=== PATIENT | female | born 1985 | race American Indian/Alaskan Native ===

== ENCOUNTER 2019-05-23 21:36 | Inpatient (IN) | payer MEDICARE, OTHER ==
--- NOTE | 2019-05-23 22:38 | Event Note ---
ED Screening Note Date of service: 05/23/19 Time: 22:37 ED Screening Note: 33 y o f presents with chest pain, sob and mohan x 2 days prod cough This initial assessment/diagnostic orders/clinical plan/treatment(s) is/are subject to change based on patients health status, clinical progression and re- assessment by fellow clinical providers in the ED. Further treatment and workup at subsequent clinical providers discretion. Patient/guardian urged not to elope from the ED as their condition may be serious if not clinically assessed and managed. Initial orders include: cxr
--- NOTE | 2019-05-23 23:27 | XRay Report ---
CHEST 2 VIEWS INDICATION / CLINICAL INFORMATION: prod cough and pain. COMPARISON: Chest x-ray 05/08/2010 FINDINGS: SUPPORT DEVICES: None. HEART / MEDIASTINUM: No significant abnormality. LUNGS / PLEURA: Peribronchial or thickening has developed since prior study suggestive for bronchitis /asthma. No focal infiltrate is seen to suggest pneumonia No pneumothorax. ADDITIONAL FINDINGS: No significant additional findings. IMPRESSION: 1. Peribronchial or thickening suggestive for mild bronchitis. Signer Name: Praful Carreon MD Signed: 05/23/2019 11:23 PM Workstation Name: [id number]
[2019-05-23 23:30] LABS: Basophils % (Auto) 0.3 % (0.0-1.8); Eosinophils # (Auto) 0.2 K/mm3 (0.0-0.4); Eosinophils % (Auto) 1.4 % (0.0-4.3); Hematocrit 35.7 % (30.3-42.9); Hemoglobin 11.6 gm/dl (10.1-14.3); Lymphocytes # (Auto) 1.3 K/mm3 (1.2-5.4); Lymphocytes % (Auto) 9.5 % (13.4-35.0); Mean Corpuscular HGB Conc 32 % (30-34); Mean Corpuscular Volume 78 fl (79-97); Monocytes # (Auto) 0.5 K/mm3 (0.0-0.8); Monocytes % (Auto) 4.2 % (0.0-7.3); Platelet Count 219 K/mm3 (140-440); Red Blood Count 4.57 M/mm3 (3.65-5.03); Red Cell Distribution Width 19.2 % (13.2-15.2)
[2019-05-23 23:52] LABS: BUN/Creatinine Ratio 8; Blood Urea Nitrogen 6 mg/dL (7-17); Calcium 8.8 mg/dL (8.4-10.2); Hemolysis Index 7
[2019-05-24] MEDS ORDERED: PROVENTIL IH ONE ×2 (00:10→11:48)
[2019-05-24] MEDS ORDERED: SUBLIMAZE IM ONE (00:10)
[2019-05-24] MEDS ORDERED: ATROVENT IH ONE (00:10)
[2019-05-24] MEDS ORDERED: ZOFRAN IM ONE (00:10)
[2019-05-24] MEDS ORDERED: ZITHROMAX 500 MG in NACL 0.9% 250ML 250 ML IV ONE (00:21)
[2019-05-24] MEDS ORDERED: ROCEPHIN/NS 1 GM/50 ML 1 GM/50 ML BAG IV ONE (00:21)
[2019-05-24] MEDS ORDERED: SUBLIMAZE IV ONE (00:21)
--- NOTE | 2019-05-24 00:21 | Emergency Department Report ---
HPI - General Chief Complaint: Chest Pain Time Seen by Provider: 05/23/19 22:37 - HPI HPI: Room 3 The patient is a 33-year-old female presenting with a chief complaint of chest pain and shortness of breath. The patient states since yesterday she has had left-sided chest pain intermittently associated with shortness of breath and cough productive of yellow sputum. Patient with nausea but denies vomiting or diaphoresis. Patient denies sick contacts or recent travel outside of the [place]. The patient gives her pain a score of 9/10 Location: [See above] Duration: [See above] Quality: [See above] Severity: [See above] Timing: [See above] Context: [See above] Modifying factors: [See above] Associated signs and symptoms: [see above] ED Past Medical Hx - Past Medical History Previous Medical History?: Yes Additional medical history: Morbid Obesity - Surgical History Past Surgical History?: No - Family History Family history: no significant - Social History Smoking Status: Current Every Day Smoker (2/3 pack per day) Substance Use Type: None ED Review of Systems ROS: Stated complaint: CHEST PAIN/MIGRAINE Other details as noted in HPI Constitutional: fever (?) Eyes: denies: eye pain Respiratory: cough, shortness of breath Cardiovascular: chest pain Endocrine: no symptoms reported Gastrointestinal: nausea. denies: vomiting Genitourinary: denies: dysuria Musculoskeletal: denies: back pain Neurological: headache Physical Exam - Physical Exam Vital Signs: Vital Signs 05/23/19 22:37 Temperature 98.6 F Pulse Rate 118 H Respiratory 20 Rate Blood Pressure 201/95 O2 Sat by Pulse 95 Oximetry Physical Exam: GENERAL: The patient is well-developed well-nourished female lying on stretcher not appearing to be in acute distress. [] HEENT: Normocephalic. Atraumatic. Extraocular motions are intact. Patient has moist mucous membranes. NECK: Supple. No meningitic signs are noted. There is no adenopathy noted. CHEST/LUNGS: Faint wheezing diffusely. There is no respiratory distress noted. HEART/CARDIOVASCULAR: Regular. There is tachycardia. There is no gallop rub or murmur. ABDOMEN: Abdomen is soft, nontender. Patient has normal bowel sounds. There is no abdominal distention. SKIN: There is no rash. There is no diaphoresis. NEURO: The patient is awake, alert, and oriented. The patient is cooperative. The patient has normal speech MUSCULOSKELETAL:There is no evidence of acute injury. ED Course Vital Signs 05/23/19 22:37 Temperature 98.6 F Pulse Rate 118 H Respiratory 20 Rate Blood Pressure 201/95 O2 Sat by Pulse 95 Oximetry ED Medical Decision Making - Lab Data Result diagrams: 05/23/19 23:04 05/23/19 23:04 - EKG Data -: EKG Interpreted by Me EKG shows normal: sinus rhythm Rate: tachycardia (118 bpm) - EKG Data Interpretation: nonspecific ST-T wave uziel (T-wave inversions in leads 2, 3, aVF) - Radiology Data Radiology results: report reviewed (chest x-ray), image reviewed (chest x-ray) interpreted by me: Chest [id number] diffuse infiltrate. No pneumothorax [facility] [address] [place] [address] XRay Report Signed Patient: SCOUT BURNETT MR#: [id number] : 1985 Acct:[id number] Age/Sex: 33 / F ADM Date: 05/23/19 Loc: ED Attending Dr: Ordering Physician: BHAVANI GARCIA Date of Service: 05/23/19 Procedure(s): XR chest routine 2V Accession Number(s): [id number] cc: BHAVANI GARCIA Fluoro Time In Minutes: CHEST 2 VIEWS INDICATION / CLINICAL INFORMATION: prod cough and pain. COMPARISON: Chest x-ray 05/08/2010 FINDINGS: SUPPORT DEVICES: None. HEART / MEDIASTINUM: No significant abnormality. LUNGS / PLEURA: Peribronchial or thickening has developed since prior study suggestive for bronchitis/asthma. No focal infiltrate is seen to suggest pneumonia No pneumothorax. ADDITIONAL FINDINGS: No significant additional findings. IMPRESSION: 1. Peribronchial or thickening suggestive for mild bronchitis. Signer Name: Praful Carreon MD Signed: 05/23/2019 11:23 PM Workstation Name: [id number] Transcribed By: TL Dictated By: Praful Carreon MD Electronically Authenticated By: Praful Carreon MD Signed Date/Time: 05/23/192322 DD/ 17 TD/TT: - Differential Diagnosis pneumonia, bronchitis, myocarditis, hypertensive urgency Critical care attestation.: If time is entered above; I have spent that time in minutes in the direct care of this critically ill patient, excluding procedure time. ED Disposition Clinical Impression: Pneumonia, Hypertensive crisis, Tachycardia, Leukocytosis, Chest pain Disposition: OP ADMIT IP TO THIS HOSP Is pt being admited?: Yes Does the pt Need Aspirin: Yes Condition: Fair Instructions: Bacterial Pneumonia (ED), Hypertension (ED), Chest Pain (ED) Time of Disposition: 01:11 (hospitalist paged (Dr Adames))
[2019-05-24] MEDS ORDERED: REGLAN IV ONE (00:22)
[2019-05-24] MEDS ORDERED: CATAPRES PO ONE (00:26)
[2019-05-24] MEDS ORDERED: NACL 0.9% 1000 ML 1,000 ML IV ONE (00:26)
[2019-05-24] MEDS ORDERED: APRESOLINE IV ONE (02:43)
[2019-05-24] MEDS ORDERED: MORPHINE IV ONE ×2 (02:44→22:24)
[2019-05-24] MEDS: HEPARIN SUB-Q SCH ×3 (03:10→22:02)
[2019-05-24] MEDS: TYLENOL PO PRN ×3 (03:11→15:30)
[2019-05-24] MEDS: ZOFRAN IV PRN ×2 (03:18→19:59)
[2019-05-24] MEDS: NACL 0.9% 1000 ML 1,000 ML IV SCH ×2 (04:42→12:05)
[2019-05-24] MEDS: ROBITUSSIN PO PRN ×4 (04:42→19:59)
--- NOTE | 2019-05-24 06:30 | History and Physical Report ---
CHIEF COMPLAINT: Pleuritic chest pain. Other complaints include shortness of breath, fever and cough. HISTORY OF PRESENT ILLNESS: The patient is a 33-year-old female who said she has been having pleuritic chest pain that is intermittent and associated with shortness of breath and cough productive of yellow sputum. There is also history of fever, nausea, but no vomiting. The patient also complained about palpitations, but denied history of dizziness and presented for evaluation. PAST MEDICAL HISTORY: Pertinent for morbid obesity. PAST SURGICAL HISTORY: Unremarkable. FAMILY HISTORY: Noncontributory. SOCIAL HISTORY: The patient smokes cigarette; does not drink alcohol and does not use illicit drug. MEDICATIONS: The patient is not on any medications. ALLERGIES: THE PATIENT IS ALLERGIC TO METRONIDAZOLE. REVIEW OF SYSTEMS: CONSTITUTIONAL: There is fever, there is chills, but no diaphoresis. HEENT: There is no headache or sore throat. CARDIOVASCULAR SYSTEM: There is pleuritic chest pain, but no orthopnea. RESPIRATORY SYSTEM: There is shortness of breath and cough. GASTROINTESTINAL SYSTEM: There is nausea, but no vomiting, no abdominal pain, diarrhea or constipation. NEUROLOGICAL SYSTEM: There is no numbness, no dizziness, no altered mental status. MUSCULOSKELETAL SYSTEM: There is no joint pain or swelling. DERMATOLOGICAL SYSTEM: There is no skin rash or itching. GENITOURINARY SYSTEM: There is no dysuria, hematuria, or flank pain. Rest of system review is normal. PHYSICAL EXAMINATION: GENERAL: At the time of exam, the patient was found to be alert, oriented x 3 and not in acute distress. VITAL SIGNS: At the initial time of presentation showed temperature of 98.6 degrees Fahrenheit, pulse of 118, respiratory rate of 20, initial blood pressure of 201/95 and subsequently the blood pressure came down to about 143/69. HEENT: Showed pupils to be equal, round, reactive to light and accommodating. Extraocular muscles are intact. NECK: Supple with no JVD or carotid bruit. CARDIOVASCULAR SYSTEM: Showed normal first and second heart sounds with no gallops or murmurs. RESPIRATORY SYSTEM: Show good air entry on both sides of the lungs with no abnormal breath sounds. GASTROINTESTINAL SYSTEM: Show abdomen to be full, soft, nontender with no organomegaly or rigidity. NEUROLOGIC: Shows no focal deficit. MUSCULOSKELETAL SYSTEM: Show no joint swelling or tenderness. DERMATOLOGICAL SYSTEM: Show no skin rash. GENITOURINARY SYSTEM: Showing no costovertebral angle tenderness. PERTINENT LABORATORY AND IMAGING STUDIES: The patient had chest x-ray done that shows peribronchial thickening suggestive of mild bronchitis and the patient's lab results shows CBC with elevated white count of 13,100, normal hemoglobin, normal hematocrit and CBC differential showing elevated segmented neutrophil count of 84.6%. The patient's chemistry show mild decrease in sodium level of 136 with rest of chemistry being unremarkable. The patient's troponin level came back normal for 2 sets and lactic acid level was unremarkable. The patient's brain natriuretic peptide level was normal. DIAGNOSES: 1. Bronchitis. 2. Hypertensive crisis. 3. Obesity. PLAN OF CARE: 1. The patient will be admitted to medical floor on remote telemetry. 2. The patient will be on IV ceftriaxone 1 gram daily for empiric treatment of bronchitis and Zithromax 500 mg IV daily also for empiric treatment of bronchitis. 3. The patient will be on Tylenol 650 mg by mouth every 4 hours for fever and headache and will be on Robitussin 200 mg by mouth every 4 hours for cough. 4. The patient will be on IV hydralazine 10 mg every 4 hours for elevated blood pressure of 150/90 or more. 5. The patient will be on IV normal saline at 125 mL an hour and will be on IV Zofran 4 mg every 8 hours as needed for nausea and vomiting. JOB# [id number] OCN/NTS
[2019-05-24] MEDS: HABITROL TD SCH ×2 (08:40→12:10)
--- NOTE | 2019-05-24 11:52 | Event Note ---
Date: 05/24/19 Patient seen and examined admitted for SOB, bronchitis, SIRS, cont current Mx and plan as dictated in h and p
[2019-05-24 12:39] LABS: Creatine Kinase MB 4.1 ng/mL (0.0-4.0)
[2019-05-24] MEDS: DUONEB *Not for PRN Use IH SCH ×2 (14:22→19:41)
[2019-05-24] MEDS: APRESOLINE IV PRN ×2 (15:32→19:58)
[2019-05-24] MEDS: ULTRAM PO PRN (21:59)
[2019-05-24] MEDS: ROCEPHIN/NS 1 GM/50 ML 1 GM/50 ML BAG IV SCH (21:59)
[2019-05-24] MEDS: NORVASC PO SCH (22:00)
[2019-05-24] MEDS ORDERED: ZOFRAN IV PRN (22:24)
[2019-05-24] MEDS: ZITHROMAX 500 MG in NACL 0.9% 250ML 250 ML IV SCH (22:26)
[2019-05-25] MEDS ORDERED: MORPHINE IV ONE (00:35)
[2019-05-25] MEDS: DUONEB *Not for PRN Use IH SCH ×4 (02:00→20:53)
[2019-05-25] MEDS: NACL 0.9% 1000 ML 1,000 ML IV SCH (04:07)
[2019-05-25] MEDS ORDERED: APRESOLINE IV PRN (08:38)
[2019-05-25] MEDS: HABITROL TD SCH (10:39)
[2019-05-25] MEDS: NORVASC PO SCH ×2 (10:39→22:21)
[2019-05-25] MEDS: ULTRAM PO PRN ×2 (10:40→18:19)
[2019-05-25] MEDS: MUCINEX ER PO SCH ×2 (10:40→22:20)
[2019-05-25] MEDS: HEPARIN SUB-Q SCH ×2 (10:41→22:22)
--- NOTE | 2019-05-25 15:17 | Progress Note ---
Assessment and Plan Acute hypoxic respiratory failure - O2 sats dropped to 83% on exertion with 2 L nasal cannula Acute asthma exacerbation SIRS with acute asthma and bronchitis Hypertensive Urgency Morbid obesity - Will provide scheduled nebulizer breathing treatment and as needed -Continue on on empiric steroid and antibiotic - chest x-ray showed peribronchial thickening consistent with acute bronchitis - Provide supplemental oxygen to keep oxygen saturation above 92% - Consult pulmonary as no improvement of symptoms yet - We to provide supportive care - Monitor BP, continue on Norvasc and add lisinopril - May need outpatient eval for nocturnal CPAP - Dietary and exercise recommendation on discharge as clinically indicated - Provide DVT prophylaxis with Lovenox. Physical exam: GENERAL: well-developed morbidly obese -English female lying on bed appeared to be in no discomfort. HEENT: Normocephalic. Atraumatic. No conjunctival congestion or icterus. Patient has moist mucous membranes. NECK: Supple. Trachea midline. CHEST/LUNGS: Diffuse wheezes auscultated bilaterally, breathing slightly labored. No crackles or rhonchi. HEART/CARDIOVASCULAR: Regular in rate and rhythm. S1 and S2 positive. ABDOMEN: Abdomen is soft, nontender. Patient has normal bowel sounds. SKIN: There is no rash. Warm and dry. NEURO: No focal motor deficit. Follows command. MUSCULOSKELETAL: No joint effusion or tenderness. EXTRIMITY: No edema, no cyanosis or clubbing. PSYCH: Cooperative. Subjective Date of service: 05/25/19 Interval history: Patient seen and examined. Medical records and medication list reviewed. No acute event overnight noted by the RN. Patient continues to complains of shortness of breath and headache. Also has persistent cough. Patient is tolerating diet. Discussed plan of care at bedside with patient. Objective - Constitutional Vitals: Vital Signs - 12hr 05/25/19 05/25/19 05/25/19 06:45 08:57 10:39 Temperature 99.1 F Pulse Rate 98 H 98 H Pulse Rate [ 110 H Bilateral] Respiratory 20 Rate Respiratory 24 Rate [Bilateral ] Blood Pressure 182/95 182/95 O2 Sat by Pulse 92 97 Oximetry 05/25/19 05/25/19 05/25/19 10:40 13:00 13:26 Temperature 98.3 F Pulse Rate 101 H Pulse Rate [ 107 H Bilateral] Respiratory 20 22 Rate Respiratory 20 Rate [Bilateral ] Blood Pressure 173/94 O2 Sat by Pulse 91 Oximetry - Labs CBC & Chem 7: 05/23/19 23:04 05/26/19 04:47
[2019-05-25] MEDS: SOLU-Medrol IV SCH ×2 (18:19→22:20)
[2019-05-25] MEDS: ZESTRIL PO SCH (18:21)
[2019-05-25] MEDS: ZITHROMAX 500 MG in NACL 0.9% 250ML 250 ML IV SCH (22:24)
[2019-05-25] MEDS: ROCEPHIN/NS 1 GM/50 ML 1 GM/50 ML BAG IV SCH (22:25)
[2019-05-26] MEDS: APRESOLINE IV PRN ×2 (02:04→05:22)
[2019-05-26] MEDS: DUONEB *Not for PRN Use IH SCH ×4 (03:59→20:03)
[2019-05-26] MEDS: SOLU-Medrol IV SCH ×3 (05:21→21:47)
[2019-05-26 05:40] LABS: BUN/Creatinine Ratio 9; Blood Urea Nitrogen 6 mg/dL (7-17); Calcium 9.1 mg/dL (8.4-10.2); Hemolysis Index 0
[2019-05-26] MEDS: HABITROL TD SCH (10:50)
[2019-05-26] MEDS: MUCINEX ER PO SCH ×2 (10:50→21:48)
[2019-05-26] MEDS: HEPARIN SUB-Q SCH ×2 (10:51→21:48)
[2019-05-26] MEDS: ZESTRIL PO SCH ×2 (11:02→21:47)
[2019-05-26] MEDS: NORVASC PO SCH (11:02)
[2019-05-26] MEDS: ULTRAM PO PRN ×2 (11:37→16:06)
--- NOTE | 2019-05-26 15:20 | Consultation ---
History of Present Illness Consult date: 05/26/19 Reason for consult: dyspnea, cough, chest pain, other (Migrane headaches.) History of present illness: PULMONARY AND CRITICAL CARE CONSULTATION. DR. MCCORMICK THANK YOU FOR ASKING US TO PARTICIPATE IN THE CARE OF THIS PATIENT. The patient is a 33-year-old female presenting with a chief complaint of chest pain and shortness of breath. The patient states since yesterday she has had left-sided chest pain intermittently associated with shortness of breath and c ough productive of yellow sputum. Patient with nausea but denies vomiting or diaphoresis. Patient denies sick contacts or recent travel outside of the [place]. Patient has history of smoking 1 pack for 1 1/2 day x 14 years. Denies alcohol or drug abuse. She drives [employer] 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 Allergic to flagy. Patient complaining sleep symptoms. Day time sleepiness, snorining. Recommend sl eep study as out patient. Recommend not to drive or operate heavy euipment with symptoms of sleep apnea. Avoid sedation and pain medications. Medications and Allergies Allergies Allergy/AdvReac Type Severity Reaction Status Date / Time metronidazole [From Flagyl] Allergy Hives Verified 05/23/19 21:51 Home Medications Medication Instructions Recorded Confirmed Last Taken Type No Known Home Medications [No 05/24/19 05/24/19 Unknown History Reported Home Medications] Active Meds: Active Medications Acetaminophen (Tylenol) 650 mg PO Q4H PRN PRN Reason: Fever >101 Last Admin: 05/24/19 15:30 Dose: 650 mg Documented by: Albuterol/Ipratropium (Duoneb *Not For Prn Use*) 1 ampul IH Q6HRT [facility] Last Admin: 05/26/19 15:07 Dose: 1 ampul Documented by: Amlodipine Besylate (Norvasc) 10 mg PO QDAY [facility] Last Admin: 05/26/19 11:02 Dose: 10 mg Documented by: Guaifenesin (Robitussin) 200 mg PO Q4H PRN PRN Reason: Cough Last Admin: 05/24/19 19:59 Dose: 200 mg Documented by: Guaifenesin (Mucinex Er) 600 mg PO BID [facility] Last Admin: 05/26/19 10:50 Dose: 600 mg Documented by: Heparin Sodium (Porcine) (Heparin) 5,000 unit SUB-Q Q12HR [facility] Last Admin: 05/26/19 10:51 Dose: 5,000 unit Documented by: Hydralazine HCl (Apresoline) 10 mg IV Q4H PRN PRN Reason: Blood Pressure Last Admin: 05/26/19 05:22 Dose: 10 mg Documented by: Hydralazine HCl (Apresoline) 5 mg IV Q30MIN PRN PRN Reason: Hypertension Azithromycin 500 mg/ Sodium (Chloride) 250 mls @ 250 mls/hr IV Q24HR@2200 [facility]; Protocol Stop: 05/28/19 22:59 Last Admin: 05/25/19 22:24 Dose: 250 mls/hr Documented by: Ceftriaxone Sodium (Rocephin/Ns 1 Gm/50 Ml) 1 gm in 50 mls @ 100 mls/hr IV Q 24HR@2200 [facility]; Protocol Last Admin: 05/25/19 22:25 Dose: 100 mls/hr Documented by: Lisinopril (Zestril) 20 mg PO QDAY [facility] Last Admin: 05/26/19 11:02 Dose: 20 mg Documented by: Methylprednisolone Sodium Succinate (Solu-Medrol) 40 mg IV Q8HR [facility] Last Admin: 05/26/19 05:21 Dose: 40 mg Documented by: Nicotine (Habitrol) 21 mg TD DAILY [facility] Last Admin: 05/26/19 10:50 Dose: 21 mg Documented by: Ondansetron HCl (Zofran) 4 mg IV Q6H PRN PRN Reason: Nausea And Vomiting Tramadol HCl (Ultram) 50 mg PO Q4H PRN PRN Reason: Pain, Moderate (4-6) Last Admin: 05/26/19 11:37 Dose: 50 mg Documented by: Review of Systems All systems: negative Physical Examination Vital signs: Vital Signs Temp Pulse Resp BP Pulse Ox 98.6 F 118 H 20 201/95 95 05/23/19 22:37 05/23/19 22:37 05/23/19 22:37 05/23/19 22:37 05/23/19 22:37 General appearance: no acute distress, alert Eyes: non-icteric ENT: oropharynx moist Neck: supple, no lymphadenopathy Ascultation: Bilateral: diminished breath sounds Cardiovascular: regular rate and rhythm Gastrointestinal: normoactive bowel sounds, soft Integumentary: normal Extremities: no cyanosis, no edema Musculoskeletal: ROM normal Gait: other (rESTING IN BED AT THIS TIME.) normal mental status, non-focal exam, pupils equal and round, CN II-XII normal mood appropriate Results - Laboratory Findings CBC and BMP: 05/23/19 23:04 05/26/19 04:47 Abnormal lab findings: Abnormal Labs 05/23/19 05/23/19 05/24/19 23:04 23:04 10:42 WBC 13.1 H MCV 78 L MCH 25 L RDW 19.2 H Lymph % (Auto) 9.5 L Seg Neutrophils % 84.6 H Seg Neutrophils # 11.1 H Sodium 136 L BUN 6 L Glucose Total Creatine Kinase 235 H CK-MB (CK-2) 4.1 H 05/26/19 04:47 WBC MCV MCH RDW Lymph % (Auto) Seg Neutrophils % Seg Neutrophils # Sodium 134 L BUN 6 L Glucose 116 H Total Creatine Kinase CK-MB (CK-2) - Diagnostic Findings Chest x-ray: report reviewed, image reviewed Additional studies: CHEST 2 VIEWS DONE ON 05/23/19 INDICATION / CLINICAL INFORMATION: prod cough and pain. COMPARISON: Chest x-ray 05/08/2010 FINDINGS: SUPPORT DEVICES: None. HEART / MEDIASTINUM: No significant abnormality. LUNGS / PLEURA: Peribronchial or thickening has developed since prior study suggestive for bronchitis/asthma. No focal infiltrate is seen to suggest pneumonia No pneumothorax. ADDITIONAL FINDINGS: No significant additional findings. IMPRESSION: 1. Peribronchial or thickening suggestive for mild bronchitis. Assessment and Plan - Patient Problems (1) Chest pain Current Visit: Yes Status: Acute Plan to address problem: Management as per primary care and cardiology. (2) Acute bronchitis Current Visit: Yes Status: Acute Plan to address problem: Continue Zithromax and Ceftriaxone. (3) Morbid obesity with BMI of 70 and over, adult Current Visit: Yes Status: Acute Plan to address problem: Recommend weight loss. Recommend exercise and diet. (4) Sleep apnea in adult Current Visit: Yes Status: Acute Plan to address problem: Recommend sleep study as an outpatient. Obtain ABG to rule out hypoxemia and Obesity Hypoventilation Syndrome.
--- NOTE | 2019-05-26 15:32 | Progress Note ---
Assessment and Plan Acute hypoxic respiratory failure - O2 sats dropped to 83% on exertion with 2 L nasal cannula Acute asthma exacerbation SIRS with acute asthma and bronchitis Hypertensive Urgency Morbid obesity Chest pain, likely pleuretic - may need cardiology eval - Will provide scheduled nebulizer breathing treatment and as needed -Continue on on empiric steroid and antibiotic - chest x-ray showed peribronchial thickening consistent with acute bronchitis - Provide supplemental oxygen to keep oxygen saturation above 92% - Consulted pulmonary as no improvement of symptoms - appreciate consult - We to provide supportive care - Monitor BP, continue on Norvasc and lisinopril - cont to adjust doses - place on aspirin and statin - May need outpatient eval for nocturnal CPAP - Dietary and exercise recommendation on discharge as clinically indicated - Provide DVT prophylaxis with Lovenox. Physical exam: GENERAL: well-developed morbidly obese -Polish female lying on bed appeared to be in no discomfort. HEENT: Normocephalic. Atraumatic. No conjunctival congestion or icterus. Patient has moist mucous membranes. NECK: Supple. Trachea midline. CHEST/LUNGS: Diffuse wheezes auscultated bilaterally, breathing slightly labored. No crackles or rhonchi. HEART/CARDIOVASCULAR: Regular in rate and rhythm. S1 and S2 positive. ABDOMEN: Abdomen is soft, nontender. Patient has normal bowel sounds. SKIN: There is no rash. Warm and dry. NEURO: No focal motor deficit. Follows command. MUSCULOSKELETAL: No joint effusion or tenderness. EXTRIMITY: No edema, no cyanosis or clubbing. PSYCH: Cooperative. Subjective Date of service: 05/26/19 Interval history: Patient seen and examined. Medical records and medication list reviewed. No acute event overnight noted by the RN. Patient continues to complains of shortness of breath and headache. Also has persistent cough. Patient is tolerating diet. gets SOB even on bed Discussed plan of care at bedside with patient. Objective - Constitutional Vitals: Vital Signs - 12hr 05/26/19 05/26/19 05/26/19 05:22 05:40 10:00 Temperature 98.3 F Pulse Rate 92 H 92 H Pulse Rate [ Bilateral] Respiratory 20 Rate Respiratory Rate [Bilateral ] Blood Pressure 160/90 Blood Pressure 160/90 [Left] O2 Sat by Pulse 98 97 Oximetry 05/26/19 05/26/19 05/26/19 10:40 10:56 11:02 Temperature 98.5 F Pulse Rate 104 H 107 H Pulse Rate [ 95 H Bilateral] Respiratory 20 Rate Respiratory 18 Rate [Bilateral ] Blood Pressure 184/94 184/94 Blood Pressure [Left] O2 Sat by Pulse 98 Oximetry 05/26/19 05/26/19 11:48 15:08 Temperature 99.3 F Pulse Rate 101 H Pulse Rate [ 85 Bilateral] Respiratory 24 Rate Respiratory 18 Rate [Bilateral ] Blood Pressure 159/79 Blood Pressure [Left] O2 Sat by Pulse 94 Oximetry - Labs CBC & Chem 7: 05/23/19 23:04 05/26/19 04:47 Labs: Abnormal lab results 05/26/19 Range/Units 04:47 Sodium 134 L (137-145) mmol/L BUN 6 L (7-17) mg/dL Glucose 116 H (65-100) mg/dL
[2019-05-26] MEDS: PULMICORT IH SCH (20:03)
[2019-05-26] MEDS: ROCEPHIN/NS 1 GM/50 ML 1 GM/50 ML BAG IV SCH (21:46)
[2019-05-26] MEDS: ZITHROMAX 500 MG in NACL 0.9% 250ML 250 ML IV SCH (22:12)
[2019-05-27] MEDS: DUONEB *Not for PRN Use IH SCH ×4 (01:53→21:32)
[2019-05-27] MEDS: SOLU-Medrol IV SCH ×3 (06:12→21:07)
[2019-05-27] MEDS: PULMICORT IH SCH ×2 (07:23→21:32)
[2019-05-27] MEDS: ZESTRIL PO SCH ×2 (12:00→21:23)
[2019-05-27] MEDS: NORVASC PO SCH (12:00)
[2019-05-27] MEDS: MUCINEX ER PO SCH ×2 (12:01→21:07)
[2019-05-27] MEDS: HABITROL TD SCH (12:01)
[2019-05-27] MEDS: HEPARIN SUB-Q SCH ×2 (12:01→21:07)
--- NOTE | 2019-05-27 13:13 | Consultation ---
History of Present Illness Consult date: 05/27/19 Medications and Allergies Allergies Allergy/AdvReac Type Severity Reaction Status Date / Time metronidazole [From Flagyl] Allergy Hives Verified 05/23/19 21:51 Home Medications Medication Instructions Recorded Confirmed Last Taken Type No Known Home Medications [No 05/24/19 05/24/19 Unknown History Reported Home Medications] Active Meds: Active Medications Acetaminophen (Tylenol) 650 mg PO Q4H PRN PRN Reason: Fever >101 Last Admin: 05/24/19 15:30 Dose: 650 mg Documented by: Albuterol/Ipratropium (Duoneb *Not For Prn Use*) 1 ampul IH Q6HRT [facility] Last Admin: 05/27/19 07:23 Dose: 1 ampul Documented by: Amlodipine Besylate (Norvasc) 10 mg PO QDAY [facility] Last Admin: 05/27/19 12:00 Dose: 10 mg Documented by: Budesonide (Pulmicort) 0.5 mg IH Q12HRT [facility] Last Admin: 05/27/19 07:23 Dose: 0.5 mg Documented by: Guaifenesin (Robitussin) 200 mg PO Q4H PRN PRN Reason: Cough Last Admin: 05/24/19 19:59 Dose: 200 mg Documented by: Guaifenesin (Mucinex Er) 600 mg PO BID [facility] Last Admin: 05/27/19 12:01 Dose: 600 mg Documented by: Heparin Sodium (Porcine) (Heparin) 5,000 unit SUB-Q Q12HR [facility] Last Admin: 05/27/19 12:01 Dose: 5,000 unit Documented by: Hydralazine HCl (Apresoline) 10 mg IV Q4H PRN PRN Reason: Blood Pressure Last Admin: 05/26/19 05:22 Dose: 10 mg Documented by: Hydralazine HCl (Apresoline) 5 mg IV Q30MIN PRN PRN Reason: Hypertension Azithromycin 500 mg/ Sodium (Chloride) 250 mls @ 250 mls/hr IV Q24HR@2200 [facility]; Protocol Stop: 05/28/19 22:59 Last Infusion: 05/27/19 06:11 Dose: Infused Documented by: Ceftriaxone Sodium (Rocephin/Ns 1 Gm/50 Ml) 1 gm in 50 mls @ 100 mls/hr IV Q24HR@2200 [facility]; Protocol Last Infusion: 05/27/19 06:10 Dose: Infused Documented by: Lisinopril (Zestril) 20 mg PO BID [facility] Last Admin: 05/27/19 12:00 Dose: 20 mg Documented by: Methylprednisolone Sodium Succinate (Solu-Medrol) 40 mg IV Q8HR [facility] Last Admin: 05/27/19 06:12 Dose: 40 mg Documented by: Nicotine (Habitrol) 21 mg TD DAILY [facility] Last Admin: 05/27/19 12:01 Dose: 21 mg Documented by: Ondansetron HCl (Zofran) 4 mg IV Q6H PRN PRN Reason: Nausea And Vomiting Tramadol HCl (Ultram) 50 mg PO Q4H PRN PRN Reason: Pain, Moderate (4-6) Last Admin: 05/26/19 16:06 Dose: 50 mg Documented by: Physical Examination Vital Signs Temp Pulse Resp BP Pulse Ox 98.6 F 118 H 20 201/95 95 05/23/19 22:37 05/23/19 22:37 05/23/19 22:37 05/23/19 22:37 05/23/19 22:37 Results 05/23/19 23:04 05/26/19 04:47 Assessment and Plan Detailed Cardiology consult dictated.
--- NOTE | 2019-05-27 17:15 | Progress Note ---
Assessment and Plan Acute hypoxic respiratory failure Acute asthma exacerbation - O2 sats dropped to 83% on exertion with 2 L nasal cannula - Will provide scheduled nebulizer breathing treatment and as needed -Continue on on empiric steroid and antibiotic - chest x-ray showed peribronchial thickening consistent with acute bronchitis - Provide supplemental oxygen to keep oxygen saturation above 92% - Consulted pulmonary as no improvement of symptoms - appreciate consult - assess for home O2 requirement SIRS with acute asthma and bronchitis - cont abx Hypertensive Urgency - Monitor BP, continue on Norvasc and lisinopril - cont to adjust doses - place on aspirin and statin Morbid obesity - Dietary and exercise recommendation on discharge as clinically indicated Chest pain, likely pleuretic - cardiology consulted per pulmonary recommendation - negative CE, 2d echo with preserved EF - plan for stress test tomorrow - on aspirin and statin - Provide DVT prophylaxis with Lovenox. Physical exam: GENERAL: well-developed morbidly obese -[place] female lying on bed appeared to be in no discomfort. HEENT: Normocephalic. Atraumatic. No conjunctival congestion or icterus. Patient has moist mucous membranes. NECK: Supple. Trachea midline. CHEST/LUNGS:+ wheezes auscultated bilaterally, breathing slightly labored. No crackles or rhonchi. HEART/CARDIOVASCULAR: Regular in rate and rhythm. S1 and S2 positive. ABDOMEN: Abdomen is soft, nontender. Patient has normal bowel sounds. SKIN: There is no rash. Warm and dry. NEURO: No focal motor deficit. Follows command. MUSCULOSKELETAL: No joint effusion or tenderness. EXTRIMITY: No edema, no cyanosis or clubbing. PSYCH: Cooperative. Subjective Date of service: 05/27/19 Interval history: Patient seen and examined. Medical records and medication list reviewed. No acute event overnight noted by the RN. Patient shortness of breath and headache improved. improved cough. Patient is tolerating diet. gets SOB on exertion Discussed plan of care at bedside with patient. Objective - Constitutional Vitals: Vital Signs - 12hr 05/27/19 05/27/19 05/27/19 05:35 07:23 07:27 Temperature 98.4 F Pulse Rate 81 Pulse Rate [ 90 Bilateral] Respiratory 18 Rate Respiratory 20 Rate [Bilateral ] Blood Pressure 150/77 O2 Sat by Pulse 95 94 Oximetry 05/27/19 05/27/19 05/27/19 11:58 12:00 13:41 Temperature Pulse Rate Pulse Rate [ 92 H Bilateral] Respiratory Rate Respiratory 20 Rate [Bilateral ] Blood Pressure 158/92 158/92 O2 Sat by Pulse Oximetry - Labs CBC & Chem 7: 05/23/19 23:04 05/26/19 04:47 Labs: Abnormal lab results 05/27/19 05/27/19 Range/Units 14:38 15:58 POC ABG pH 7.458 H (7.35-7.45) POC ABG pCO2 33.5 L (35-45) POC ABG pO2 72 L 60 L (80-105)
--- NOTE | 2019-05-27 17:35 | Progress Note ---
Assessment and Plan Patient alert, awake and resting on 2 litres O2. O2 saturation 92%. No complaint of chest pain, shortness of breath or cough. Patient undergoing cardiac work up. - Patient Problems (1) Chest pain Current Visit: Yes Status: Acute Plan to address problem: Management as per primary care and cardiology. Patient undergoing cardiology work up. (2) Acute bronchitis Current Visit: Yes Status: Acute Plan to address problem: Continue Zithromax and Ceftriaxone. (3) Morbid obesity with BMI of 70 and over, adult Current Visit: Yes Status: Acute Plan to address problem: Recommend weight loss. Recommend exercise and diet. (4) Sleep apnea in adult Current Visit: Yes Status: Acute Plan to address problem: Recommend sleep study as an outpatient. ABG on room air. POC ABG pH 7.458 (7.35-7.45) H 05/27/19 15:58 POC ABG pCO2 33.5 (35-45) L 05/27/19 15:58 POC ABG pO2 60 (80-105) L 05/27/19 15:58 POC ABG HCO3 23.7 (22-26 mml/L) 05/27/19 15:58 POC ABG Total CO2 25 (23-27mmol/L) 05/27/19 15:58 POC ABG O2 Sat 92 05/27/19 15:58 Less likely Obesity hypoventilation. Patient not retaining PCO2. Subjective Date of service: 05/27/19 Interval history: Patient alert, awake and resting on 2 litres O2. O2 saturation 92%. No complaint of chest pain, shortness of breath or cough. Patient undergoing cardiac work up. Objective Vital Signs - 12hr 05/27/19 05/27/19 05/27/19 07:23 07:27 11:58 Pulse Rate [ 90 Bilateral] Respiratory 20 Rate [Bilateral ] Blood Pressure 158/92 O2 Sat by Pulse 94 Oximetry 05/27/19 05/27/19 12:00 13:41 Pulse Rate [ 92 H Bilateral] Respiratory 20 Rate [Bilateral ] Blood Pressure 158/92 O2 Sat by Pulse Oximetry Constitutional: no acute distress, alert Eyes: non-icteric ENT: oropharynx moist Neck: supple, no lymphadenopathy Ascultation: Bilateral: diminished breath sounds Cardiovascular: regular rate and rhythm Gastrointestinal: normoactive bowel sounds, soft Integumentary: normal Extremities: no cyanosis, no edema Neurologic: normal mental status, non-focal exam, pupils equal and round, CN II- XII normal Psychiatric: mood appropriate CBC and BMP: 05/23/19 23:04 05/26/19 04:47 ABG, PT/INR, D-dimer: ABG POC ABG pH 7.458 (7.35-7.45) H 05/27/19 15:58 POC ABG pCO2 33.5 (35-45) L 05/27/19 15:58 POC ABG pO2 60 (80-105) L 05/27/19 15:58 POC ABG HCO3 23.7 (22-26 mml/L) 05/27/19 15:58 POC ABG Total CO2 25 (23-27mmol/L) 05/27/19 15:58 POC ABG O2 Sat 92 05/27/19 15:58 Abnormal lab findings: Abnormal Labs 05/23/19 05/23/19 05/24/19 23:04 23:04 10:42 WBC 13.1 H MCV 78 L MCH 25 L RDW 19.2 H Lymph % (Auto) 9.5 L Seg Neutrophils % 84.6 H Seg Neutrophils # 11.1 H POC ABG pH POC ABG pCO2 POC ABG pO2 Sodium 136 L BUN 6 L Glucose Total Creatine Kinase 235 H CK-MB (CK-2) 4.1 H 05/26/19 05/27/19 05/27/19 04:47 14:38 15:58 WBC MCV MCH RDW Lymph % (Auto) Seg Neutrophils % Seg Neutrophils # POC ABG pH 7.458 H POC ABG pCO2 33.5 L POC ABG pO2 72 L 60 L Sodium 134 L BUN 6 L Glucose 116 H Total Creatine Kinase CK-MB (CK-2)
[2019-05-27] MEDS: ROCEPHIN/NS 1 GM/50 ML 1 GM/50 ML BAG IV SCH (21:04)
[2019-05-27] MEDS: ZITHROMAX 500 MG in NACL 0.9% 250ML 250 ML IV SCH (22:37)
[2019-05-28] MEDS: DUONEB *Not for PRN Use IH SCH ×3 (03:30→14:14)
[2019-05-28] MEDS: SOLU-Medrol IV SCH ×2 (05:28→13:57)
--- NOTE | 2019-05-28 06:16 | Consultation ---
CARDIOLOGY CONSULTATION REFERRING PHYSICIAN: Dr. Stein, hospitalist. HISTORY OF PRESENT ILLNESS: A 33-year-old morbidly obese woman was admitted with a history of fever, cough with expectoration and left parasternal chest pains 2-3 days before admission. Chest x-ray revealed evidence of bronchitis and she is being treated with intravenous antibiotics. Licensing Analyst has already evaluated the patient. The chest pain was not precipitated by exertion. She has had shortness of breath for 3-4 days, and whenever she has shortness of breath, she has left parasternal chest pains. It is increased on breathing suggestive of pleuritic chest pain. She is not a known hypertensive; however, her blood pressure was found to be increased. Her most recent blood pressure is 158/92 mmHg. She has leukocytosis with a WBC count of 13.1. Serial troponins were negative, and myocardial infarction has been ruled out. CPK was increased; however, CPK-MB indices were negative. Her echocardiogram revealed normal left ventricular systolic function with EF around 55-60%, mild right ventricular dilatation, mild tricuspid regurgitation without evidence of pulmonary hypertension. There was no evidence of pericardial effusion. She has history of snoring and daytime sleepiness, possible obstructive sleep apnea. She has never had sleep studies in the past. FAMILY HISTORY: Negative for premature coronary artery disease. SOCIAL HISTORY: She has been smoking 3/4 of a pack of cigarettes per day for the past 14 years. Occasionally, she takes alcohol-wine. No history of drug abuse. She has not had any major surgery in the past. REVIEW OF SYSTEMS: PULMONARY: History of bronchitis, possible obstructive sleep apnea. METABOLISM AND ENDOCRINOLOGY: Has morbid obesity, history of chronic cigarette smoking. NEUROLOGICAL: Negative. BONE AND JOINTS: Negative. Review of rest of the 10 systems is negative. MEDICATIONS: Hydralazine IV p.r.n., lisinopril 20 mg p.o. b.i.d., nicotine patch, bronchodilators, amlodipine 10 mg p.o. daily, IV Zithromax, IV ceftriaxone, subcutaneous heparin 5000 units q.12 hours, IV methylprednisolone 40 mg every 8 hours. PHYSICAL EXAMINATION: GENERAL: A 33-year-old, morbidly obese, pleasant -[place]in[place] woman. VITAL SIGNS: Pulse 114 per minute, blood pressure 158/92 mmHg, respirations 18 per minute. NEUROLOGIC: She is alert and oriented x 3. HEENT: Negative. NECK: Supple, no JVD, no bruit, no thyromegaly. HEART: PMI could not be felt, no palpable thrills. Auscultation of the heart reveals muffled heart sounds. No murmur or rub is detected. LUNGS: Bilateral air entry, good and equal. No bronchial breathing. No wheezing. ABDOMEN: Soft, benign, morbid obesity. EXTREMITIES: Peripheral pulses, felt chronic 1-2+ edema. SKIN: She has dry skin over both the legs. LABORATORY DATA: Potassium, BUN and creatinine within normal limits. Cardiac enzymes as described in the history. WBC 13.1, hemoglobin and hematocrit 11.6 and 35.7, platelet count is normal. EKG, sinus tachycardia with a rate of 118 per minute. Minor nonspecific T-wave changes. Chest x-ray, 2 views suggestive of mild bronchitis. IMPRESSION: 1. Atypical pleuritic type of chest pain -- myocardial infarction ruled out. 2. Bronchitis. 3. Morbid obesity. 4. Possible obstructive sleep apnea. 5. Tobacco abuse. 6. Normal ventricular function by echocardiogram without evidence of any pulmonary hypertension. RECOMMENDATIONS: 1. To continue present management. 2. Blood pressure control. 3. We will schedule her for a Lexiscan stress nuclear scan in the a.m. for further cardiac evaluation. 4. We would also order for a fasting lipid panel in the a.m. Thank you again, we will follow. Yours sincerely, JOB# [id number] [facility]
[2019-05-28 07:31] LABS: Chol/HDL Ratio 4.04 %
--- NOTE | 2019-05-28 08:05 | Progress Note ---
Assessment and Plan Acute hypoxemic respiratory failure JORDYN Acute asthma exacerbation SIRS Hypertensive Urgency Morbid obesity Chest pain Tobacco Use Disorder - continue supplemental oxygen and wean to keep O2 sat's > 88-90% - continue bronchodilators with pulmonary hygiene per RT - continue systemic steroids with slow wean - tobacco abstinenece strongly counseled at bedside - continue oral HTNsives with prn IV for SBP > 160-170 mmHg - weight loss counseled - BIPA qhs with prn daytime use - complete empiric AB's therapy - optimize cardiac status per cardiology team - GI & VTE prophylaxis - outpatient pulmonary and sleep clinic f/up ... re-evaluate in am & prn Subjective Date of service: 05/28/19 Principal diagnosis: Ac hypoxemic resp failure; JORDYN; Ac asthma exacerbation; SIRS Interval history: Patient is seen today for: Acute hypoxemic resp failure; JORDYN; Acute asthma exacerbation; SIRS ; Hypertensive Urgency ; Morbid obesity; Chest pain; Tobacco Use Disorder Seen and examined at bedside; 24hour events reviewed; nursing and respiratory care staff consulted; no adverse overnight events reported to me; Objective Vital Signs - 12hr 05/27/19 05/27/19 05/27/19 21:23 21:32 22:00 Temperature Pulse Rate 89 Pulse Rate [ 98 H Bilateral] Respiratory Rate Respiratory 18 Rate [Bilateral ] Blood Pressure 171/98 O2 Sat by Pulse 97 97 Oximetry 05/28/19 05/28/19 00:29 05:59 Temperature 98.5 F 97.8 F Pulse Rate 86 69 Pulse Rate [ Bilateral] Respiratory 20 20 Rate Respiratory Rate [Bilateral ] Blood Pressure 159/84 166/93 O2 Sat by Pulse 94 91 Oximetry Constitutional: no acute distress, alert Eyes: non-icteric ENT: oropharynx moist Neck: supple, no lymphadenopathy Ascultation: Bilateral: diminished breath sounds Cardiovascular: regular rate and rhythm Gastrointestinal: normoactive bowel sounds, soft Integumentary: normal Extremities: no cyanosis, no edema Neurologic: normal mental status, non-focal exam, pupils equal and round, CN II- XII normal Psychiatric: mood appropriate CBC and BMP: 05/23/19 23:04 05/26/19 04:47 ABG, PT/INR, D-dimer: ABG POC ABG pH 7.458 (7.35-7.45) H 05/27/19 15:58 POC ABG pCO2 33.5 (35-45) L 05/27/19 15:58 POC ABG pO2 60 (80-105) L 05/27/19 15:58 POC ABG HCO3 23.7 (22-26 mml/L) 05/27/19 15:58 POC ABG Total CO2 25 (23-27mmol/L) 05/27/19 15:58 POC ABG O2 Sat 92 05/27/19 15:58 Abnormal lab findings: Abnormal Labs 05/23/19 05/23/19 05/24/19 23:04 23:04 10:42 WBC 13.1 H MCV 78 L MCH 25 L RDW 19.2 H Lymph % (Auto) 9.5 L Seg Neutrophils % 84.6 H Seg Neutrophils # 11.1 H POC ABG pH POC ABG pCO2 POC ABG pO2 Sodium 136 L BUN 6 L Glucose Total Creatine Kinase 235 H CK-MB (CK-2) 4.1 H 05/26/19 05/27/19 05/27/19 04:47 14:38 15:58 WBC MCV MCH RDW Lymph % (Auto) Seg Neutrophils % Seg Neutrophils # POC ABG pH 7.458 H POC ABG pCO2 33.5 L POC ABG pO2 72 L 60 L Sodium 134 L BUN 6 L Glucose 116 H Total Creatine Kinase CK-MB (CK-2)
[2019-05-28] MEDS: PULMICORT IH SCH (08:20)
--- NOTE | 2019-05-28 08:29 | Discharge Summary ---
Providers - Providers Date of Admission: 05/24/19 01:46 Date of discharge: 05/28/19 Attending physician: PRANEETH AHMADI 05/25/19 16:30 Consult to Physician [CONS] Routine Comment: Consulting Provider: EDITH BOONE Physician Instructions: Reason For Exam: respiratory failure 05/27/19 10:21 Consult to Physician [CONS] Routine Comment: Consulting Provider: RUBEN SOLIS Physician Instructions: Reason For Exam: chest pain [facility] Condition: Fair Pertinent studies: Chest x-ray A 2-D echo Hospital course: The patient is a 33-year-old female with history of morbid obesity, tobacco abuse withsmoking 1 pack for 1 1/2 day x 14 years presented to the ER with a chief complaint of chest pain and shortness of breath and cough productive of yellow sputum. Patients also complained of Day time sleepiness, snorining. Patient was admitted to medical floor with scheduled nebs, iv abx, iv steroids and supplemental O2 to keep O2 sat at 94%. CXR showed no infiltrates but peribronchial thickening consistent with acute bronchitis . Patients symptom improved with medical management. Her 2-D echocardiogram showed preserved EF, cardiac enzymes were normal. Cardiology was consulted for chest pain and recommended stress test but could not be obtained due to her weight. She will follow-up with cardiology as outpatient. She did not qualify for home oxygen. [facility]/u. Discharge diagnosis and management: Acute hypoxic respiratory failure (O2 sats dropped to 83% on exertion with 2 L nasal cannula, POA) Acute asthma exacerbation - provided scheduled nebulizer breathing treatment and as needed, empiric steroid and antibiotic - chest x-ray showed peribronchial thickening consistent with acute bronchitis - Provide supplemental oxygen to keep oxygen saturation above 92% - Consulted pulmonary as no improvement of symptoms - appreciate consult - assessed for home O2 requirement, but she did not qualify SIRS with acute asthma and bronchitis - treated with abx Hypertensive Urgency - Monitored BP, placed on Norvasc and lisinopril and adjusted doses - placed on aspirin and statin Morbid obesity - Dietary and exercise recommendation on discharge as clinically indicated Chest pain, likely pleuretic - cardiology consulted per pulmonary recommendation - negative CE, 2d echo with preserved EF - planned for stress test but could not be performed b/o weight - Placed on aspirin and statin, will f/u outpt with cardiology Obstructive sleep apnea with possible obesity hypoventilation syndrome - Patient complained of daytime sleepiness, snoring during the bedtime - Recommend sleep study as out patient. - Recommend not to drive or operate heavy euipment with symptoms of sleep apnea. - Avoid sedation and pain medications. Tobacco abuse, counselled for cessation - Provided DVT prophylaxis with Lovenox. Physical exam: GENERAL: well-developed morbidly obese -[place] female lying on bed appeared to be in no discomfort. HEENT: Normocephalic. Atraumatic. No conjunctival congestion or icterus. Patient has moist mucous membranes. NECK: Supple. Trachea midline. CHEST/LUNGS:no wheezes auscultated bilaterally, breathing notlabored. No crackles or rhonchi. HEART/CARDIOVASCULAR: Regular in rate and rhythm. S1 and S2 positive. ABDOMEN: Abdomen is soft, nontender. Patient has normal bowel sounds. SKIN: There is no rash. Warm and dry. NEURO: No focal motor deficit. Follows command. MUSCULOSKELETAL: No joint effusion or tenderness. EXTRIMITY: No edema, no cyanosis or clubbing. PSYCH: Cooperative. Disposition: DC-01 TO HOME OR SELFCARE Time spent for discharge: 34 minutes Core Measure Documentation - Palliative Care Palliative Care/ Comfort Measures: Not Applicable - Core Measures Any of the following diagnoses?: none Exam - Constitutional Vitals: Temp Pulse Resp BP Pulse Ox 97.8 F 69 20 166/93 91 05/28/19 05:59 05/28/19 05:59 05/28/19 05:59 05/28/19 05:59 05/28/19 05:59 Plan Activity: advance as tolerated Weight Bearing Status: Weight Bear as Tolerated Diet: low fat, low salt Follow up with: [facility] MD ERENDIRA [Primary Care Provider] - 7 Days RANDY CLAY MD [Staff Physician] - 7 Days RUBEN SOLIS MD [Staff Physician] - 7 Days Prescriptions: AtorvaSTATin [Lipitor] 40 mg PO QHS #30 tablet predniSONE [Deltasone] 50 mg PO QDAY #7 tab Aspirin EC [Halfprin EC] 81 mg PO QDAY #30 tablet guaiFENesin ER [Mucinex ER] 600 mg PO BID #14 tablet amLODIPine [Norvasc] 10 mg PO QDAY #30 tablet ALBUTEROL Inhaler (OR & NICU) [Proair] 2 puff IH QID PRN #1 vial PRN Reason: Shortness Of Breath Budesonide/Formoterol Fumarate [Symbicort 160-4.5 Mcg Inhaler] 10.2 gm IH BID #1 hfa.aer.ad Lisinopril [Zestril TAB] 40 mg PO QDAY #30 tablet Azithromycin [Zithromax] 500 mg PO DAILY 5 Days tablet
[2019-05-28] MEDS ORDERED: ZESTRIL PO SCH (10:00)
[2019-05-28] MEDS ORDERED: HALFPRIN EC PO SCH (10:00)
[2019-05-28] MEDS: NORVASC PO SCH (11:23)
[2019-05-28] MEDS: MUCINEX ER PO SCH (11:24)
[2019-05-28] MEDS: HABITROL TD SCH (11:24)
[2019-05-28] MEDS: HEPARIN SUB-Q SCH (11:29)
--- NOTE | 2019-05-28 13:05 | Progress Note ---
Assessment and Plan Echo reviewed - EF normal, no significant abnormalities. Pt reports resolution of chest pain. AMI ruled out. Unable to perform stress MPI due to pt's dimensions. Currently stable cardiac status. No plans for additional cardiac w/u at this time. If symptoms recur, can consider further eval as OP. Pt may discharge home from cardiology standpoint. Recommend follow up in our office with Dr. Kwan within 1-2 weeks of hospital discharge ([phone]). The patient has been seen in conjunction with Dr. Kwan who agrees with the assessment and plan of care. - Patient Problems (1) Atypical chest pain Current Visit: Yes Status: Resolved (2) Bronchitis Current Visit: Yes Status: Acute (3) Morbid obesity Current Visit: Yes Status: Chronic (4) Sleep apnea Current Visit: Yes Status: Suspected (5) Tobacco use Current Visit: Yes Status: Chronic Subjective Date of service: 05/28/19 Principal diagnosis: cp; sob Interval history: pt resting in bed, states chest pain has resolved, still with some mild sob. Objective Last Vital Signs Temp 97.8 F 05/28/19 05:59 Pulse 68 05/28/19 08:22 Resp 18 05/28/19 08:22 BP 169/104 05/28/19 11:24 Pulse Ox 97 05/28/19 08:22 - Physical Examination General: No Apparent Distress HEENT: Positive: PERRL, Normocephaly, Mucus Membranes Moist Neck: Positive: neck supple, trachea midline Cardiac: Positive: Reg Rate and Rhythm, S1/S2 Lungs: Positive: Decreased Breath Sounds Neuro: Positive: Grossly Intact Abdomen: Negative: Tender Skin: Negative: Rash Musculoskeletal: No Pain Extremities: Absent: edema - Labs and Meds Lipids 05/28/19 Range/Units 06:06 Triglycerides 107 (2-149) mg/dL Cholesterol 174 (50-199) mg/dL HDL Cholesterol 43 (40-59) mg/dL Cholesterol/HDL Ratio 4.04 % - Imaging and Cardiology EKG: report reviewed, image reviewed Echo: report reviewed
[2019-05-28] MEDS: APRESOLINE IV PRN (14:34)
[2019-05-28 15:08] VITALS: BP 158/94
== END 2019-05-28 16:05 | disposition home or self-care (01) | DRG 193 ==
LOC: ED 21:36 → 3A 05-24 01:46
PROVIDERS: ADMIT Internal Medicine; ATTEND Internal Medicine
PROC: 4A033R1 Measurement of Arterial Saturation, Peripheral, Percutaneous Approach (ICD-10-PCS; principal; 2019-05-27)
DX: J18.9 Pneumonia, unspecified organism (principal); J96.01 Acute respiratory failure with hypoxia; Z68.45 Body mass index [BMI] 70 or greater, adult; I16.9 Hypertensive crisis, unspecified; R65.10 Systemic inflammatory response syndrome (SIRS) of non-infectious origin without acute organ dysfunction; J45.901 Unspecified asthma with (acute) exacerbation; I16.0 Hypertensive urgency; E66.01 Morbid (severe) obesity due to excess calories; F17.210 Nicotine dependence, cigarettes, uncomplicated; J20.9 Acute bronchitis, unspecified; G47.33 Obstructive sleep apnea (adult) (pediatric); R07.81 Pleurodynia
CPT/HCPCS: 36415; 36600; 71046; 80048; 80061; 82140; 82550; 82553; 82803; 83880; 84484; 85025; 87040; 93005; 93010; 93306; 94640; 94644; 94760; 99406; G0378; J0360; J0456; J0696; J1644; J2270; J2405; J2765; J2920; J3010; J7030; J7050